=== PATIENT | female | born 1975 | race Caucasian/White ===

== ENCOUNTER 2017-01-27 21:49 | Emergency (ER) ==
--- NOTE | 2017-01-27 22:18 | PROVIDER DOCUMENTATION ---
HPI-Musculoskeletal Pain/Inj - GENERAL Source: patient - HX OF PRESENT ILLNESS-MUSKULOSKELTAL Quality of Pain: reports: tearing Severity in ED: moderate Onset/Duration: other (1.35 weeks) Timing: getting worse Modifying Factors: improves with: nothing Any recent injury?: Yes Locality of Occurance: Home Similar Symptoms Previously?: No Recently seen or treated by another doctor?: No - FALL INJURY Location of Pain/Injury: reports: upper extremity - UPPER EXTREMITY PAIN/INJURY Extremities Pain Location: arm: right <Colten Coats - Last Filed: 01/27/17 22:21> <Ce Greer - Last Filed: 01/27/17 22:55> - GENERAL Chief Complaint: Extremity Injury Stated Complaint: RT ARM PAIN Time Seen by Provider: 01/27/17 21:57 - HX OF PRESENT ILLNESS-MUSKULOSKELTAL Nature of Presenting Problem: Pt is a 41 y/o WF complaining of tearing right upper arm pain in her bicep. Pt states she has hx of right rotator cuff tear but this pain is in a different location. Pt states she felt a pop in that area 1.5 weeks ago when lifting her grandchild. Pt states the pain is getting worse. (Colten Coats) Review of Systems - Adult - REVIEW OF SYSTEMS - ADULT Constitutional: denies: chills, fever Eyes: reports: no symptoms reported Ears, Nose, Mouth & Throat: reports: no symptoms reported Cardiovascular: reports: no symptoms reported Respiratory: reports: no symptoms reported Gastrointestinal: reports: no symptoms reported Genitourinary: reports: no symptoms reported Musculoskeletal: reports: other (right arm pain). denies: back pain, joint pain Integumentary: reports: no symptoms reported Neurological: reports: no symptoms reported Psychiatric: reports: no symptoms reported Endocrine: reports: no symptoms reported Hematologic/Lymphatic: reports: no symptoms reported Allergic/Immunologic: reports: no symptoms reported All Other Systems: Reviewed and Negative <Colten Coats - Last Filed: 01/27/17 22:21> Past History - Adult - PAST MEDICAL HISTORY-ADULT Review of Records: reports: Old Records Reviewed, Nursing Assessment Review, Medications Reviewed Major Childhood Illnesses: reports: denies history Cardiovascular: reports: denies history Respiratory: reports: pneumonia Gastrointestinal: reports: denies history Obstetrical/Gynecological: reports: denies history Genitourinary: reports: denies history Musculoskeletal: reports: denies history Neurological: reports: denies history Psychiatric: reports: anxiety Endocrine/Immune: reports: Diabetes Other Conditions: reports: denies history - PRIOR SURGERIES/PROCEDURES Surgical/Procedure History: reports: hysterectomy - PRIOR HOSPITALIZATIONS Prior Hospitalizations: reports: none - IMMUNIZATION STATUS Childhood Immunizations: See Nurse Assessment Flu Vaccine: See Nurse Assessment - FAMILY HISTORY Family History: reviewed, not pertinent - SOCIAL HISTORY Smoking: cigarettes Living Situation: family <Colten Coats - Last Filed: 01/27/17 22:21> Physical Exam-Injury Related - Physical Exam-Injury Related Initial Vital Signs Reviewed: Yes General Appearance: appears well, alert, no apparent distress Eyes: PERRL/EOMI, pink conjunctivae Head, Ears, Nose, Mouth & Throat: moist mucous membranes, normal ENT inspection , TMs normal, pharynx normal Neck: non-tender, full range of motion, supple, normal inspection Respiratory: lungs clear, normal breath sounds, no pleuratic chest pain, no respiratory distress, no accessory muscle use Cardiovascular: normal peripheral pulses, regular rate, rhythm Abdominal Exam: normal bowel sounds, non tender, soft Back Exam: normal inspection, no CVA tenderness, no vertebral tenderness Extremity: tenderness (uppper trap and bicep), other (right radial pulse 2+ Pain with flexion and rotation of arm). negative: deformity, erythema, inflammation Integumentary: normal color, warm/dry, blanching Neurologic: grossly normal, no motor/sensory deficits Psych/Mental Status: normal mood/affect, normal thought content, normal thought process <Colten Coats - Last Filed: 01/27/17 22:21> Progress <Colten Coats - Last Filed: 01/27/17 22:21> - XRAY 1 XRAY Study: Humerus XRAY Interpretation: NAP <Ce Greer - Last Filed: 01/27/17 22:55> - PLAN OF CARE/RESULTS Progress/Plan/Lab Results: Orders Category Date Time Status HUMERUS-RIGHT [RAD] Stat Exams 01/27/17 22:12 Taken Vital Signs Temp Pulse Resp BP Pulse Ox 01/27/17 21:52 98.7 F 96 H 14 131/72 100 acetaminophen Allergy (Intermediate, Verified 01/27/17 22:34) RASH alprazolam [From Xanax] Adverse Reaction (Intermediate, Verified 01/27/17 22:34) hallucinations HALLUCINATIONS tramadol Adverse Reaction (Intermediate, Verified 01/27/17 22:34) VOMITING Clonazepam [Klonopin] 1 mg PO BID 03/06/15 Hydrocodone/Ibuprofen [Vicoprofen 200-7.5 mg Tab] 7.5 mg PO TID 01/04/17 Cyclobenzaprine [Flexeril] 10 mg PO BID 01/27/17 Methylprednisolone Sod Succ [Solu-Medrol] 125 mg INJ ONCE #1 vial 01/27/17 Methylprednisolone [Medrol Dosepak] 4 mg PO DIRECTED #1 package 01/27/17 (Ce Greer) Departure <Colten Coats - Last Filed: 01/27/17 22:21> - Departure Time of Disposition Order: 22:53 Certified Medical Emergency: Emergent <Ce Greer - Last Filed: 01/27/17 22:55> - Departure DIAGNOSIS: Right arm pain Disposition: HOME 01 Condition: Good Additional Instructions: ED Follow Up Instructions: You have been treated by a care provider in the Emergency Department. These instructions are being provided to you so you can have an understanding of how to care for yourself upon discharge. Upon discharge from the Emergency Department, you are responsible for making arrangements for follow-up care by a physician of your choice. Take all prescribed medications as directed. Return to the Emergency Department immediately for any new or worsening symptoms. You may call the Physician Referral phone number at [phone] to obtain a list of Physicians who are taking new patients. Prescriptions: Methylprednisolone [Medrol Dosepak] 4 mg PO DIRECTED #1 package Methylprednisolone Sod Succ [Solu-Medrol] 125 mg INJ ONCE #1 vial Attestation - Scribe Verification/Attestation Scribe:: Colten Coats Acting as Scribe for:: Ce Greer Scribe documention review:: This chart was documented by a scribe and accurately reflects the service the provider performed and the decisions made by the provider. <Colten Coats - Last Filed: 01/27/17 22:21> - Physician/ MOHAN Attestation Patient care was provided by Advanced Practice Provider:: Yes Advanced Practice Provider:: Ce Greer Advanced Practice Provider documentation review:: The Mid-level provider documentation, treatment plan and medical decision making was reviewed by the physician who agrees with all treatment and medical decision making by the MLP. <Ce Greer - Last Filed: 01/27/17 22:55> Physician Attestation
[2017-01-27] MEDS ORDERED: SOLU-MEDROL IV ONE (22:57)
[2017-01-27] MEDS ORDERED: SOLU-MEDROL IM ONE (23:05)
[2017-01-27 23:14] VITALS: BP 107/60
--- NOTE | 2017-01-28 09:33 | Diag Imaging Result Document ---
PROCEDURE NAME: HUMERUS-RIGHT - 01/27/2017 X-RAY RIGHT HUMERUS 2 VIEWS, 01/27/2017: COMPARISON: 09/01/2016. FINDINGS: Bones are intact and normally aligned. Joint spaces and soft tissues are clear. IMPRESSION: Negative exam.
== END 2017-01-27 23:18 | disposition home or self-care (01) ==
LOC: ED 21:49
DX: M79.621 Pain in right upper arm (principal); E11.9 Type 2 diabetes mellitus without complications; F41.9 Anxiety disorder, unspecified; Z79.899 Other long term (current) drug therapy
CPT/HCPCS: J2930